=== PATIENT | female | born 1985 | race Caucasian/White ===

== ENCOUNTER 2016-10-09 23:50 | Emergency (ER) | payer OTHER ==
[~2016-10-09] VITALS: Ht 157.5 cm; Wt 97.8 kg
[~2016-10-09 23:50] MED LIST: ACET-1256 PO; PRENTAB26 PO
[2016-10-10 00:12] VITALS: TEMP 36.6; Ht 157.5 cm; Wt 97.8 kg
[2016-10-10] MEDS ORDERED: SODIUM CHLORIDE 0.9% 1000ML 1,000 ML IV STA (01:16)
[2016-10-10] MEDS ORDERED: ONDANSETRON 8 MG/54 ML D5W IV STA (01:34)
[2016-10-10] MEDS ORDERED: HYDROmorphone INJ 0.5 MG/0.5 ML SYR IV STA ×2 (01:34→04:23)
[2016-10-10 01:47] LABS: BASO % 0.5 %; BASO ABS # 0.05 K/uL (0-0.2); COMPLETE YES; IG% 0.3 %; LYMPH % 16.2 %; LYMPH ABS # 1.75 K/uL (1.2-3.4); MEAN CELL VOLUME 91.7 fL (80-100); MEAN CORPUSCULAR HGB CONC 33.9 g/dl (32-36); MEAN PLATELET VOLUME 11.1 fL (7.4-10.4); MONO % 5.3 %; NEUT % 76.7 %; PLATELET COUNT 233 K/uL (130-400); WHITE BLOOD COUNT 10.77 K/uL (4.8-10.8)
[2016-10-10 02:00] LABS: ALT/SGPT 36 U/L (12-78); AST/SGOT 23 U/L (15-37); BLOOD UREA NITROGEN 7 mg/dl (7-18); CALCIUM 8.4 mg/dl (8.5-10.1); CARBON DIOXIDE 26 mmol/L (21-32); CHLORIDE 103 mmol/L (98-107); GLUCOSE 110 mg/dl (70-99); POTASSIUM 3.8 mmol/L (3.5-5.1); SODIUM 138 mmol/L (136-145)
[2016-10-10 02:02] LABS: ALKALINE PHOSPHATASE 80 U/L (45-117)
[2016-10-10 03:03] LABS: MANUAL MICROSCOPIC REQUIRED? NO; REVIEW REQ? NO; URINE APPEARANCE TURBID (CLEAR); URINE BILIRUBIN NEG (NEG); URINE COLOR DK YELLOW; URINE EPITHELIAL CELL AUTO >30 /lpf (0-5); URINE NITRITE NEG (NEG); URINE SPECIFIC GRAVITY 1.027 (1.000-1.030); UROBILINOGEN NEG (NEG); ZZUR CULT IF INDIC CLEAN CATCH YES
[2016-10-10] MEDS ORDERED: SULFAMETHOXAZOLE/TRIMETHOPRIM DS 800/160MG TAB PO STA (04:18)
[2016-10-10] MEDS ORDERED: PROM25TA9 PO (04:21)
[2016-10-10] MEDS ORDERED: HYDR-5688 PO (04:21)
[2016-10-10] MEDS ORDERED: SULF800T23 PO (04:21)
[2016-10-10] MEDS ORDERED: PHENERGAN 25MG HOMEPACK PO ONE (04:30)
[2016-10-10] MEDS ORDERED: NORCO 5/325MG HOME PACK PO ONE (04:30)
[2016-10-10 04:46] VITALS: BP 128/87; PULSE 92; O2SAT 97
--- NOTE | 2016-10-10 06:58 | DIAGNOSTIC IMAGING REPORT ---
ABDOMEN AND PELVIS CT WITHOUT CONTRAST CT DOSE: 1584.28 mGy.cm HISTORY: Flank pain Right flank pain TECHNIQUE: Multiaxial CT images of the abdomen and pelvis were performed without the use of intravenous and oral contrast according to the standard department stone protocol. COMPARISON STUDY: 03/30/2013 FINDINGS: The lung bases are clear. The unenhanced liver, gallbladder, spleen, pancreas, and adrenal glands are unremarkable. 5 mm obstructing calculus distal right ureter. The right hydroureteronephrosis. Mild infiltrative change of the right renal and to lesser extent periureteral fat. Normal bowel pattern. Normal appendix. IMPRESSION: 5 mm obstructing calculus distal right ureter. Moderate right hydroureteronephrosis. Electronically signed by: Fernando Yost M.D. 10/10/2016 6:57 AM Dictated Date/Time: 10/10/2016 6:55 AM
--- NOTE | 2016-10-10 07:07 | EMERGENCY ROOM VISIT NOTE ---
History Report prepared by Jalen: José Le Under the Supervision of: Dr. Balwinder Fagan M.D. First contact with patient: 01:16 Chief Complaint: FLANK PAIN Stated Complaint: FLANK AND GROIN PAIN,VOMITING,NAUSEA History of Present Illness The patient is a 31 year old female who presents to the Emergency Room with complaints of persistent abdominal pain that started 2 days ago. The patient notes that she had the discomfort two days ago and also had burning with urination and vomiting. The discomfort is on her right side. The discomfort resolved on its own and the patient made an appointment with her PCP to get evaluated for a potential UTI. However, the discomfort came back tonight and wouldn't go away. She had multiple episodes of vomiting. She has history of kidney stones and notes that symptoms feel similar. Pt denies LOC, headache, fevers, chills, diaphoresis, visual changes, neck pain, chest pain, breathing difficulties, melena, hematochezia, numbness, weakness, lymphadenopathy, rash, or other complaints. Source of History: patient Onset: 2 days ago Position: abdomen Timing: other (persistent) Associated Symptoms: + urinary symptoms, + vomiting Review of Systems See HPI for pertinent positives and negatives. A total of ten systems were reviewed and were otherwise negative. Past Medical & Surgical Medical Problems: (1) Abdominal pain (2) Acute chest pain (3) Anxiety (4) Boxer's fracture (5) Bronchitis (6) Celiac disease (7) Chest pain (8) Cholecystectomy (9) Diarrhea (10) Gallbladder problem (11) Hand pain, right (12) Headache (13) Headache (14) Headache (15) Heart palpitations (16) History of reduction of breast (17) Hx of ectopic (18) Paresthesia (19) Paresthesias (20) Pyelonephritis (21) Right flank pain (22) Stomach problems (23) Vertigo Surgical Problems: (1) History of cholecystectomy (2) History of pelvic surgery Family History FH: breast cancer FH: gallbladder disease Social History Smoking Status: Current Every Day Smoker Alcohol Use: none Drug Use: none Marital Status: Housing Status: lives with family Occupation Status: employed Current/Historical Medications Scheduled Multivit/Min/Iron/Fol Ac/Pren ( Vitamin), 1 TAB PO WK Sulfa/Trimethoprim (Bactrim Ds 800MG/160MG), 1 TAB PO BID Scheduled PRN Acetaminophen (Tylenol), 500 MG PO Q3H PRN for Pain Hydrocodone/Acetaminophen 5MG/325MG ([place] 5MG/325MG), 1-2 TABS PO Q6H PRN for Pain Promethazine Hcl (Phenergan), 25 MG PO Q6H PRN for Nausea Allergies Coded Allergies: Latex1 -Allergic Contact Dermititis (Verified Allergy, Intermediate, HIVES , 04/07/16) Penicillins (Verified Allergy, Intermediate, nausea, face tingling, ) Aspirin (Verified Allergy, Mild, 04/07/16) Tramadol (Verified Allergy, Mild, 04/07/16) Codeine (Verified Allergy, Unknown, HALLUCINATIONS, 04/07/16) Gluten (Unverified Allergy, Unknown, celiac, 04/07/16) Ibuprofen (Verified Allergy, Unknown, ithcing, trouble breathing., 04/07/16 ) Oxycodone (Unverified Allergy, Unknown, hives/sick, 04/07/16) Physical Exam Vital Signs Date Time Temp Pulse Resp B/P Pulse Ox O2 Delivery O2 Flow Rate FiO2 10/10/16 04:46 92 16 128/87 97 10/10/16 03:01 94 16 135/90 98 Room Air 10/10/16 00:12 36.6 91 18 105/75 97 Room Air Physical Exam GENERAL: Awake, alert, well-appearing, in no distress HENT: Normocephalic, atraumatic. Oropharynx unremarkable. EYES: Normal conjunctiva. Sclera non-icteric. NECK: Supple. No nuchal rigidity. FROM. No JVD. RESPIRATORY: Clear to auscultation. CARDIAC: Regular rate, normal rhythm. Extremities warm and well perfused. Pulses equal. ABDOMEN: Soft, non-distended. No tenderness to palpation. No rebound or guarding. No masses. RECTAL: Deferred. MUSCULOSKELETAL: Chest examination reveals no tenderness. The back is symmetrical on inspection without obvious abnormality. There is CVA tenderness to palpation. No joint edema. LOWER EXTREMITIES: Calves are equal size bilaterally and non-tender. No edema. No discoloration. NEURO: Normal sensorium. No sensory or motor deficits noted. SKIN: No rash or jaundice noted. Medical Decision & Procedures ER Provider Diagnostic Interpretation: Radiology results as stated below per my review and radiologist interpretation CT Abdomen & Pelvis: Impression: 5 mm calculus at the distal right ureter (2-146), which causes mild hydroureteronephrosis. Periureteral and perinephric stranding. Addition findings: the gallbladder is surgically absent. The liver, spleen, pancreas, and adrenal glands are unremarkable. The appendix is unremarkable. A few scattered noninflamed colonic diverticula. No free fluid. No free air. No acute osseous abnormality. Laboratory Results 10/10/16 01:28 Red Blood Count 4.80, Mean Corpuscular Volume 91.7, Mean Corpuscular Hemoglobin 31.0, Mean Corpuscular Hemoglobin Concent 33.9, Mean Platelet Volume 11.1, Neutrophils (%) (Auto) 76.7, Lymphocytes (%) (Auto) 16.2, Monocytes (%) (Auto) 5.3, Eosinophils (%) (Auto) 1.0, Basophils (%) (Auto) 0.5, Neutrophils # (Auto) 8.26, Lymphocytes # (Auto) 1.75, Monocytes # (Auto) 0.57, Eosinophils # (Auto) 0.11, Basophils # (Auto) 0.05 10/10/16 01:28 Test 10/10/16 00:00 10/10/16 01:16 10/10/16 01:28 Urine Color DK YELLOW Urine Appearance TURBID (CLEAR) Urine pH 6.0 (4.5-7.5) Urine Specific [place] 1.027 (1.000-1.030) Urine Protein TRACE (NEG) Urine Glucose (UA) NEG (NEG) Urine Ketones TRACE (NEG) Urine Occult Blood 3+ (NEG) Urine Nitrite NEG (NEG) Urine Bilirubin NEG (NEG) Urine Urobilinogen NEG (NEG) Urine Leukocyte Esterase TRACE (NEG) Urine WBC (Auto) 5-10 /hpf (0-5) Urine RBC (Auto) >30 /hpf (0-4) Urine Hyaline Casts (Auto) 1-5 /lpf (0-5) Urine Epithelial Cells (Auto) >30 /lpf (0-5) Urine Bacteria (Auto) 1+ (NEG) Urine Test NEG (NEG) White Blood Count 10.77 K/uL (4.8-10.8) Red Blood Count 4.80 M/uL (4.2-5.4) Hemoglobin 14.9 g/dL (12.0-16.0) Hematocrit 44.0 % (37-47) Mean Corpuscular Volume 91.7 fL (80-100) Mean Corpuscular Hemoglobin 31.0 pg (25-34) Mean Corpuscular Hemoglobin Concent 33.9 g/dl (32-36) Platelet Count 233 K/uL (130-400) Mean Platelet Volume 11.1 fL (7.4-10.4) Neutrophils (%) (Auto) 76.7 % Lymphocytes (%) (Auto) 16.2 % Monocytes (%) (Auto) 5.3 % Eosinophils (%) (Auto) 1.0 % Basophils (%) (Auto) 0.5 % Neutrophils # (Auto) 8.26 K/uL (1.4-6.5) Lymphocytes # (Auto) 1.75 K/uL (1.2-3.4) Monocytes # (Auto) 0.57 K/uL (0.11-0.59) Eosinophils # (Auto) 0.11 K/uL (0-0.5) Basophils # (Auto) 0.05 K/uL (0-0.2) RDW Standard Deviation 46.0 fL (36.4-46.3) RDW Coefficient of Variation 13.7 % (11.5-14.5) Immature Granulocyte % (Auto) 0.3 % Immature Granulocyte # (Auto) 0.03 K/uL (0.00-0.02) Anion Gap 9.0 mmol/L (3-11) Est Creatinine Clear Calc Drug Dose 89.9 ml/min Estimated GFR () 87.6 Estimated GFR (Non- 75.5 BUN/Creatinine Ratio 7.0 (10-20) Calcium Level 8.4 mg/dl (8.5-10.1) Total Bilirubin 0.3 mg/dl (0.2-1) Direct Bilirubin < 0.1 mg/dl (0-0.2) Aspartate Amino Transf (AST/SGOT) 23 U/L (15-37) Alanine Aminotransferase (ALT/SGPT) 36 U/L (12-78) Alkaline Phosphatase 80 U/L (45-117) Total Protein 7.8 gm/dl (6.4-8.2) Albumin 3.9 gm/dl (3.4-5.0) Lipase 106 U/L (73-393) Laboratory results reviewed by me Medications Administered Medications (Trade) Dose Ordered Sig/[place] Route Start Time Stop Time Status Last Admin Dose Admin Sodium Chloride (Nss 1000ml) 1,000 ml @ 999 mls/hr Q1H1M STAT IV 10/10/16 01:16 10/10/16 02:16 DC 10/10/16 01:48 999 MLS/HR Hydromorphone HCl (Dilaudid Inj) 0.5 mg NOW STAT IV 10/10/16 01:34 10/10/16 01:36 DC 10/10/16 01:49 0.5 MG Ondansetron HCl (Zofran 8mg Iv) 8 mg NOW STAT IV 10/10/16 01:34 10/10/16 01:36 DC 10/10/16 01:48 8 MG Trimethoprim/ Sulfamethoxazole (Septra Ds 800/ 160MG Tab) 1 tab NOW STAT PO 10/10/16 04:18 10/10/16 04:19 DC 10/10/16 04:33 1 TAB Acetaminophen/ Hydrocodone Bitart ([place] 5/325mg Home Pack) 1 homepack UD ONCE PO 10/10/16 04:30 10/10/16 04:31 DC 10/10/16 04:40 1 HOMEPACK Promethazine HCl (Phenergan 25MG Home Pack) 1 homepack UD ONCE PO 10/10/16 04:30 10/10/16 04:31 DC 10/10/16 04:40 1 HOMEPACK Hydromorphone HCl (Dilaudid Inj) 0.5 mg NOW STAT IV 10/10/16 04:23 10/10/16 04:24 DC 10/10/16 04:33 0.5 MG ED Course 0116: Ordered NSS 1000 ml @ 999 mls/hr IV. 0132: The patient was evaluated in room A4. A complete history and physical exam was performed. 0134: Ordered Zofran 8 mg Iv 8 mg IV, Dilaudid Inj 0.5 mg IV. 0248: At this time, I reevaluated the patient and she was feeling better. 0418: Ordered Septra Ds 800/ 160 MG Tab 1 tab PO. 0423: Ordered Dilaudid Inj 0.5 mg IV. 0430: Ordered Promethazine HCl 1 homepack PO, [place] 5/325 mg Home Pack 1 homepack PO. 0435: I reevaluated the patient. Discussed results and discharge instructions: She verbalized understanding and agreement. The patient is ready for discharge. Medical Decision Prior records/ancillary studies reviewed. Triage Nursing notes reviewed and agree them. Additional history obtained from the family. The patient's history was concerning for flank and abdominal pain. Differential diagnosis: Etiologies such as renal colic, appendicitis, diverticulitis, mesenteric ischemia, aortic pathology, infections, inflammatory bowel disease, PUD, biliary pathology, UTI, as well as others were entertained. Physical examination findings: As above. ER treatment provided: IV normal saline IV Dilaudid IV Zofran On reassessment the patient felt better. Departed discharge patient was given a second dose of IV Dilaudid Oral Bactrim Diagnostic interpretation by me: The labs revealed an unremarkable CBC. Urinalysis was somewhat concerning. Culture sent. Chem panel LFTs and lipase were unremarkable. Imaging studies: CT of the abdomen and pelvis as above. It appears that the patient has isolated renal colic from a right sided stone. Urinalysis was somewhat abnormal and I will cover her with Bactrim pending culture. By the evaluation outlined above emergent etiologies such as appendicitis, diverticulitis, mesenteric ischemia, aortic pathology, infections, inflammatory bowel disease, PUD, biliary pathology, UTI, as well as others were deemed relatively unlikely. The patient was informed about the findings as listed above. All questions were answered and she was pleased with the treatment. Return instructions were outlined and the patient was discharged in stable condition. Outpatient prescription management: [place] Phenergan Bactrim Referral: The pt was referred to [facility] for follow up care regarding their stone. The chart was completed utilizing [employer] Speech voice recognition software. Grammatical errors, random word insertions, pronoun errors, and incomplete sentences are an occasional consequence of this system due to software limitations, ambient noise, and hardware issues. Any formal questions or concerns about the content, text, or information contained within the body of this dictation should be directly addressed to the physician for clarification. [place] Drug Monitoring Program Search Results: patient reviewed within database, no issues identified Impression Primary Impression: Kidney stone Scribe Attestation The scribe's documentation has been prepared under my direction and personally reviewed by me in its entirety. I confirm that the note above accurately reflects all work, treatment, procedures, and medical decision making performed by me. Departure Information Dispostion Home / Self-Care Prescriptions Promethazine Hcl (Phenergan) 25 Mg Tab 25 MG PO Q6H Y for Nausea, #10 TAB Prov: Balwinder Fagan MD 10/10/16 Hydrocodone/Acetaminophen 5MG/325MG ([place] 5MG/325MG) Tab 1-2 TABS PO Q6H Y for Pain, #20 TAB Prov: Balwinder Fagan MD 10/10/16 Sulfa/Trimethoprim (Bactrim Ds 800MG/160MG) Tab 1 TAB PO BID, #6 TAB Prov: Balwinder Fagan MD 10/10/16 Referrals Pranav Pina M.D. (MEDICAL) (PCP) Forms HOME CARE DOCUMENTATION FORM, IMPORTANT VISIT INFORMATION Patient Instructions My [facility] Additional Instructions KIDNEY STONE INSTRUCTIONS: Hydrocodone/acetaminophen 5/325mg: Take 1-2 pills every 6 hours as needed for pain. Avoid additional Acetaminophen/Tylenol, alcohol, operating machinery or dangerous equipment, working on ladders or roofs, DRIVING, or situations where being under the influence may be dangerous. It is recommended to use a stool softener such as Colace, 100mg twice daily while taking this medication to avoid constipation. Phenergan 25mg: Take one every six hours as needed for nausea. Avoid alcohol, operating machinery or dangerous equipment, working on ladders or roofs, DRIVING , or situations where being under the influence may be dangerous. Trimethoprim-Sulfamethoxazole(Bactrim DS): Take one pill twice daily for 3 days for your urine. All antibiotics can cause diarrhea. If this occurs and you feel worse or it does not resolve in 1-2 days follow up with your doctor or return to the Emergency Department as this could be signs of serious underlying problems. Any medication can cause an allergic reaction, stop the pills immediately and return to the ER for rash, hives, breathing difficulties, or swelling. Acetaminophen(Tylenol) may be used for fever or pain. Use 1000mg every six hours as needed. Avoid using more than 4000mg in a 24 hour period. This medication can be taken if you need to drive, work, or perform activities which may be dangerous when taking narcotic pain medication. Strain your urine and collect all the stones or debris for the urologists. Rest and avoid strenuous activity until your stone passes and symptoms resolve. Drink plenty of fluids. Return to the ER for worsening abdominal or back pain, vomiting, fevers, passing out, or as needed. Follow up with [facility] Wednesday, [phone], to arrange a visit.
--- NOTE | 2016-10-12 12:22 | Pharmacy Progress Note ---
ED Pharmacist Culture FollowUp Date of Service: Oct 12, 2016. Gardnerella-like bacteria growing in urine cx from 10/10/16. This organism is not likely a urinary pathogen and likely represents contamination of urine cx by vaginal contents (UA had > 30 epis). Patient had been dx with R urolithiasis and prescribed [place] + Phenergan + Bactrim on discharge from ED. No action required.
== END 2016-10-10 04:49 | disposition home or self-care (01) ==
LOC: C.EDB 23:52 → C.EDA 10-10 04:49
DX: N20.0 Calculus of kidney (principal); K90.0 Celiac disease; F17.200 Nicotine dependence, unspecified, uncomplicated; Z90.49 Acquired absence of other specified parts of digestive tract

== ENCOUNTER 2016-12-05 19:19 | Emergency (ER) | payer OTHER ==
[~2016-12-05] VITALS: Ht 157.5 cm; Wt 97.3 kg
[~2016-12-05 19:19] MED LIST changes: -ACET-1256 PO; +HYDR-5688 PO; +PROM25TA9 PO; +SULF800T23 PO
[2016-12-05 19:21] VITALS: BP 138/100; PULSE 106; TEMP 36.6; O2SAT 98; Ht 157.5 cm; Wt 97.3 kg
[2016-12-05] MEDS ORDERED: FLUT0.15 NAE (19:35)
[2016-12-05] MEDS ORDERED: CLIN300C2 PO (19:51)
--- NOTE | 2016-12-05 19:51 | EMERGENCY ROOM VISIT NOTE ---
History Report prepared by Jalen: Nat Khan Under the Supervision of: Dr. Morgan Broderick D.O. First contact with patient: 19:30 Chief Complaint: DENTAL PAIN Stated Complaint: SEVERE TOOTH PAIN Nursing Triage Summary: Pt ate a chocolate bar and back left side tooth starting to hurt. Pt reports 2 fillings in that tooth. History of Present Illness The patient is a 31 year old female who presents to the Emergency Room with complaints of persistent dental pain that began this morning and has worsened throughout the day. She currently rates her discomfort as an 8/10 in severity. The patient states that she developed the dental pain and states that she believes she sees a cavity forming. She states that she has taken Tylenol without relief of her symptoms. Source of History: patient Onset: this morning Position: teeth Symptom Intensity: 8/10 Timing: worsening, other (persistent) Note: Associated Symptoms: cavity forming Review of Systems See HPI for pertinent positives & negatives. A total of 6 systems reviewed and were otherwise negative. Past Medical & Surgical Medical Problems: (1) Abdominal pain (2) Acute chest pain (3) Anxiety (4) Boxer's fracture (5) Bronchitis (6) Celiac disease (7) Chest pain (8) Cholecystectomy (9) Diarrhea (10) Gallbladder problem (11) Hand pain, right (12) Headache (13) Headache (14) Headache (15) Heart palpitations (16) History of reduction of breast (17) Hx of ectopic (18) Paresthesia (19) Paresthesias (20) Pyelonephritis (21) Right flank pain (22) Stomach problems (23) Vertigo Surgical Problems: (1) History of cholecystectomy (2) History of pelvic surgery Family History FH: breast cancer FH: gallbladder disease Social History Smoking Status: Current Every Day Smoker Alcohol Use: none Drug Use: none Marital Status: Housing Status: lives with family Occupation Status: employed Current/Historical Medications Scheduled Clindamycin Hcl (Cleocin), 300 MG PO QID Fluticasone Propionate (Nasal) (Flonase Allergy Relief), 2 SPRAYS ISIDRO DAILY Multivit/Min/Iron/Fol Ac/Pren ( Vitamin), 1 TAB PO WK Scheduled PRN Acetaminophen (Tylenol), 500 MG PO Q3H PRN for Pain Allergies Coded Allergies: Morphine (Verified Allergy, Severe, "DROPS B/P", 12/05/16) NSAIDs (Verified Allergy, Severe, CAUSES ASTHMA ATTACKS, 12/05/16) Latex1 -Allergic Contact Dermititis (Verified Allergy, Intermediate, HIVES , 12/05/16) Penicillins (Verified Allergy, Intermediate, nausea, face tingling, ) Aspirin (Verified Allergy, Mild, 12/05/16) Tramadol (Verified Allergy, Mild, 12/05/16) Codeine (Verified Allergy, Unknown, HALLUCINATIONS, 12/05/16) Gluten (Verified Allergy, Unknown, celiac, 12/05/16) Ibuprofen (Verified Allergy, Unknown, ithcing, trouble breathing., 12/05/16 ) Oxycodone (Verified Allergy, Unknown, hives/sick, 12/05/16) Physical Exam Vital Signs Date Time Temp Pulse Resp B/P Pulse Ox O2 Delivery O2 Flow Rate FiO2 12/05/16 19:21 36.6 106 18 138/100 98 Room Air Physical Exam CONSTITUTIONAL/VITAL SIGNS: Reviewed / noted above. GENERAL: Non-toxic in appearance. INTEGUMENTARY: Warm, dry, and [place]. HEAD: Normocephalic. EYES: without scleral icterus or trauma. ENT/OROPHARYNX: left lower last molar [address], no swelling noted , no other abnormalities. LYMPHADENOPATHY/NECK: Is supple without lymphadenopathy or meningismus. RESPIRATORY: Lungs clear and equal. CARDIOVASCULAR: Regular rate and rhythm. GI/ABDOMEN: Soft and nontender. No organomegaly or pulsatile mass. No rebound or guarding. Normal bowel sounds. EXTREMITIES: Warm and well perfused. BACK: No CVA tenderness. NEUROLOGICAL: Intact without focal deficits. PSYCHIATRIC: normal affect. MUSCULOSKELETAL: Normally developed with good muscle tone. Medical Decision & Procedures ED Course 193: Previous medical records were reviewed. The patient was evaluated in room D6. A complete history and physical examination was performed. I discussed all the exam findings with her and I discussed the treatment plan. She verbalized complete understanding and agreement. She is ready to go home once she receives her antibiotics. 1999: Ordered Clindamycin HCl 150 mg PO. Medical Decision Differential Diagnosis: Dental abscess, dental infection, dental trauma, facial cellulitis. This is a 31-year-old female who presents with a chief complaint of dental pain that started earlier today. Her exam was unremarkable. She states that she has been using Orajel and Tylenol. She states that she has multiple allergies. She states that people normally put her on Vicodin for this. Her exam was unremarkable. She was offered Toradol IM but declined this. She was given a prescription for clindamycin. She did not want a prescription for Toradol. She was discharged. Follow-up with her dentist was recommended. Impression Primary Impression: Dentalgia Scribe Attestation The scribe's documentation has been prepared under my direction and personally reviewed by me in its entirety. I confirm that the note above accurately reflects all work, treatment, procedures, and medical decision making performed by me. Departure Information Dispostion Home / Self-Care Prescriptions Clindamycin Hcl (CLEOCIN) 300 Mg Cap 300 MG PO QID, #40 CAP Prov: Morgan Broderick D.O. 12/05/16 Referrals Hawk Gar M.D.([facility]) (PCP) Forms HOME CARE DOCUMENTATION FORM, IMPORTANT VISIT INFORMATION Patient Instructions My [facility] Additional Instructions Follow-up with your dentist for further care and evaluation in 1-2 days. Return to the emergency department for worsening or new symptoms or any concerns. You have been examined and treated today on an emergency basis only. This is not a substitute for, or an effort to provide, complete comprehensive medical care. It is impossible to recognize and treat all injuries or illnesses in a single emergency department visit. It is therefore important that you follow up closely with your doctor. Call as soon as possible for an appointment. Continue oral gel and Tylenol for pain. Clindamycin as prescribed.
[2016-12-05] MEDS ORDERED: CLINDAMYCIN HCL 150 MG CAP PO ONE (20:00)
[2016-12-06] MEDS ORDERED: CLIN300C2 PO (08:58)
[2016-12-06] MEDS ORDERED: HYDR-5688 PO (08:58)
== END 2016-12-05 20:01 | disposition home or self-care (01) ==
LOC: C.EDB 19:20 → C.EDD 20:01
DX: K08.89 Other specified disorders of teeth and supporting structures (principal); F41.9 Anxiety disorder, unspecified; K90.0 Celiac disease; Z90.49 Acquired absence of other specified parts of digestive tract; Z80.3 Family history of malignant neoplasm of breast; F17.210 Nicotine dependence, cigarettes, uncomplicated

== ENCOUNTER 2016-12-06 08:39 | Emergency (ER) | payer OTHER ==
[~2016-12-06] VITALS: Ht 157.5 cm; Wt 97.4 kg
[~2016-12-06 08:39] MED LIST changes: +CLIN300C2 PO; +FLUT0.15 NAE
[2016-12-06 08:43] VITALS: BP 153/90; PULSE 100; TEMP 36.3; O2SAT 99; Ht 157.5 cm; Wt 97.4 kg
[2016-12-06] MEDS ORDERED: CLIN300C2 PO (08:58)
[2016-12-06] MEDS ORDERED: HYDR-5688 PO (08:58)
--- NOTE | 2016-12-06 16:35 | EMERGENCY ROOM VISIT NOTE ---
History First contact with patient: 08:46 Chief Complaint: DENTAL PAIN Stated Complaint: TOOTH PAIN Nursing Triage Summary: Pt reports she was here 12 hrs ago for left sided dental pain "They told be to take tylenol and its not touching it" History of Present Illness The patient is a 31 year old female who presents to the Emergency Room with complaints of uncontrollable dental pain. The patient reports that she was in the emergency department approximately 12 hours ago, and was told to take Tylenol for the pain. She was provided a prescription for clindamycin, but reports that it was sent to a pharmacy that is not open on Wednesday. The patient is requesting something else for pain. She denies any fever or significantly worsening swelling. She rates her discomfort a 9 out of 10. Review of Systems 10 system review was performed and was negative except for pertinent positives and negatives as indicated in history of present illness Past Medical/Surgical History Medical Problems: (1) Abdominal pain (2) Acute chest pain (3) Anxiety (4) Boxer's fracture (5) Bronchitis (6) Celiac disease (7) Chest pain (8) Cholecystectomy (9) Diarrhea (10) Gallbladder problem (11) Hand pain, right (12) Headache (13) Headache (14) Headache (15) Heart palpitations (16) History of reduction of breast (17) Hx of ectopic (18) Paresthesia (19) Paresthesias (20) Pyelonephritis (21) Right flank pain (22) Stomach problems (23) Vertigo Surgical Problems: (1) History of cholecystectomy (2) History of pelvic surgery Family History FH: breast cancer FH: gallbladder disease Social History Smoking Status: Current Every Day Smoker Alcohol Use: none Drug Use: none Marital Status: Housing Status: lives with family Occupation Status: employed Current/Historical Medications Scheduled Clindamycin Hcl (Cleocin), 300 MG PO QID Clindamycin Hcl (Cleocin), 300 MG PO QID Fluticasone Propionate (Nasal) (Flonase Allergy Relief), 2 SPRAYS ISIDRO DAILY Multivit/Min/Iron/Fol Ac/Pren ( Vitamin), 1 TAB PO WK Scheduled PRN Acetaminophen (Tylenol), 500 MG PO Q3H PRN for Pain Hydrocodone/Acetaminophen 5MG/325MG ([place] 5MG/325MG), 1-2 TABLET PO Q4H PRN for Pain Allergies Coded Allergies: Morphine (Verified Allergy, Severe, "DROPS B/P", 12/05/16) NSAIDs (Verified Allergy, Severe, CAUSES ASTHMA ATTACKS, 12/05/16) Latex1 -Allergic Contact Dermititis (Verified Allergy, Intermediate, HIVES , 12/05/16) Penicillins (Verified Allergy, Intermediate, nausea, face tingling, ) Aspirin (Verified Allergy, Mild, 12/05/16) Tramadol (Verified Allergy, Mild, 12/05/16) Codeine (Verified Allergy, Unknown, HALLUCINATIONS, 12/05/16) Gluten (Verified Allergy, Unknown, celiac, 12/05/16) Ibuprofen (Verified Allergy, Unknown, ithcing, trouble breathing., 12/05/16 ) Oxycodone (Verified Allergy, Unknown, hives/sick, 12/05/16) Physical Exam Vital Signs Date Time Temp Pulse Resp B/P Pulse Ox O2 Delivery O2 Flow Rate FiO2 12/06/16 08:43 36.3 100 18 153/90 99 Room Air Pain Rating (0-10): 0 Physical Exam CONSTITUTIONAL: Healthy and well nourished. Alert and oriented X 3 with positive affect. HEENT: Normocephalic, atraumatic. Pupils equal, round and reactive. No facial edema noted. OROPHARYNX: No obvious gingival erythema, fluctuance or pointing. Negative trismus. No evidence for Alistair's angina or retropharyngeal abscess. LYMPHATICS: No preauricular, submental, submandibular or cervical chain adenopathy. NECK: Full active range of motion without discomfort. RESPIRATORY: Clear to auscultation bilaterally with no wheezing, crackles, rhonchi or stridor. CARDIOVASCULAR: Regular rate and rhythm with no murmurs, rubs or gallops. MUSCULOSKELETAL: Full range of motion of all joints without discomfort. INTEGUMENTARY: No rash or other significant dermatologic conditions noted. NEUROLOGIC: No focal neurologic deficits noted. Facial sensations are intact. Medical Decision & Procedures ED Course Patient history and physical exam were performed. Nurse's notes were reviewed. The patient was provided a prescription for Cleocin 300 mg 4 times a day 10 days, and OxyIR 5 mg, dispensed #15 with no refills, and sent to another pharmacy for the patient. She was encouraged to take Tylenol for baseline pain relief. The patient reports that she cannot take NSAIDs because of history of asthma and prior reaction. She was instructed that she must follow-up with a dentist for definitive care, and may contact her family doctor for further pain management until she can see her dentist. The patient was advised that the emergency department does not provide dental services, referrals or chronic dental pain management. She voiced understanding of all discharge instructions , was happy with plan of care, and rated her pain an 8 out of 10 at the time of discharge. [place] [facility] Monitoring Program Search Results: patient reviewed within database, no issues identified Impression Primary Impression: Pain, dental Departure Information Dispostion Home / Self-Care Condition GOOD Prescriptions Hydrocodone/Acetaminophen 5MG/325MG (Hellier 5MG/325MG) Tab 1-2 TABLET PO Q4H Y for Pain, #15 TAB For Initial Treatment Prov: Edd Iniguez PA 12/06/16 Clindamycin Hcl (CLEOCIN) 300 Mg Cap 300 MG PO QID for 10 Days, #40 CAP Prov: Edd Iniguez PA 12/06/16 Forms HOME CARE DOCUMENTATION FORM, IMPORTANT VISIT INFORMATION Patient Instructions [facility] Additional Instructions Complete all Cleocin antibiotics as prescribed. Hydrocodone if needed for worse pain. Do not drink or drive while taking this medication. Call your dentist tomorrow to schedule an appointment. Follow-up with your family doctor as needed for additional pain management. Emergency department does not provide dental services, referrals or chronic dental pain management.
== END 2016-12-06 09:15 | disposition home or self-care (01) ==
LOC: C.EDB 08:41
DX: K08.89 Other specified disorders of teeth and supporting structures (principal); F41.9 Anxiety disorder, unspecified; K90.0 Celiac disease; F17.200 Nicotine dependence, unspecified, uncomplicated; Z80.3 Family history of malignant neoplasm of breast

== ENCOUNTER 2017-05-08 16:13 | Emergency (ER) | payer OTHER ==
[~2017-05-08 16:13] MED LIST changes: -CLIN300C2 PO; -PROM25TA9 PO; -SULF800T23 PO
[2017-05-08 16:23] VITALS: TEMP 36.7; Ht 157.5 cm
--- NOTE | 2017-05-08 16:44 | EMERGENCY ROOM VISIT NOTE ---
History First contact with patient: 16:24 Chief Complaint: FOOT PAIN Stated Complaint: FOOT INJURY, WELLING CANT STAND ON IT History of Present Illness The patient is a 32 year old female who presents to the Emergency Room with complaints of left foot pain -Pt experienced a injury to her left foot/ankle last night while partying -Pt was intoxicated and can't recall the specifics of how she fell last night. -Pt denies any other injuries. -Pt says that she woke up this morning and is unable to bear weight on her left foot. -Pt describes a sharp pain shooting upwards through from the plantar surface of the foot. -Pt says that she has pain with flexion and extension of her foot. Review of Systems see below Constitutional: No fever, No chills, No sweats Respiratory: No cough, No shortness of breath Cardiovascular: No chest pain Past Medical/Surgical History Medical Problems: (1) Abdominal pain (2) Acute chest pain (3) Anxiety (4) Boxer's fracture (5) Bronchitis (6) Celiac disease (7) Chest pain (8) Cholecystectomy (9) Diarrhea (10) Gallbladder problem (11) Hand pain, right (12) Headache (13) Headache (14) Headache (15) Heart palpitations (16) History of reduction of breast (17) Hx of ectopic (18) Paresthesia (19) Paresthesias (20) Pyelonephritis (21) Right flank pain (22) Stomach problems (23) Vertigo Surgical Problems: (1) History of cholecystectomy (2) History of pelvic surgery Family History FH: breast cancer FH: gallbladder disease Social History Smoking Status: Current Every Day Smoker Alcohol Use: none Drug Use: none Marital Status: Housing Status: lives with family Occupation Status: employed Current/Historical Medications Scheduled Multivitamins/Minerals (Mvi With Minerals), 1 TAB PO Q2D Scheduled PRN Acetaminophen (Tylenol), 1,000 MG PO PRN UD PRN for Pain Hydrocodone/Acetaminophen 5MG/325MG ([place] 5MG/325MG), 1-2 TAB PO Q6H PRN for Pain Physical Exam Vital Signs Date Time Temp Pulse Resp B/P (MAP) Pulse Ox O2 Delivery O2 Flow Rate FiO2 05/08/17 18:16 86 18 98 05/08/17 16:23 36.7 86 18 13/84 98 Room Air Physical Exam WD WN Extremity: left midfoot is swollen, warm to touch. Pt has decreased active ROM in the left ankle; tenderness with flexion/extension/inversion/eversion. Lateral aspect of the foot is tender. Plantar midfoot is tender. Extremities: + pertinent finding Medical Decision & Procedures ER Provider Diagnostic Interpretation: LEFT FOOT 3 VIEWS CLINICAL HISTORY: Left foot injury. FINDINGS: 3 views of left foot are compared to study dated 11/05/2013. The skeletal structures are well mineralized. There is a lucency identified within the cuboid which may represent a nondistracted fracture. No additional findings are concerning for acute fracture. The joint spaces of the foot are maintained. Mild lateral soft tissue swelling is suggested. IMPRESSION: 1. There is a linear lucency identified in the cuboid seen on 1 view only. Nondistracted fracture is not excluded. Correlate for point tenderness at this site. 2. No additional findings are concerning for fracture. ED Course 1630 History and physical performed 1640 ordered xray 1700 Preliminary Xray read. appears to be a cuboid fracture 1723 Radiology report describes cuboid fracture 1800 pt discharged with surgical shoe, crutches and directions to f/u with ortho Medical Decision 32 yo female present after a foot injury after an injury last night Pt appears to have a midfoot injury. Xrays were ordered. Differential considered; cuboid fracture, navicular fracture, fracture of the base of the fifth metatarsal, ankle sprain Xray showed cuboid fracture Impression Primary Impression: Fracture of metatarsal bone Departure Information Dispostion Home / Self-Care Prescriptions Hydrocodone/Acetaminophen 5MG/325MG ([place] 5MG/325MG) Tab 1-2 TAB PO Q6H Y for Pain MDD daily, #15 TAB PRN PAIN Prov: Erick Sebastian M.D. 05/08/17 Referrals No Doctor, Assigned (PCP) Patient Instructions My [facility] Additional Instructions Today you had xrays performed in the ED that showed a fracture of the cuboid bone, a bone in your mid foot. Today we fitted you for a hard soled surgical shoe and crutches to help keep you foot immobilized. We advise you to keep your foot elevated and apply ice in 2 minute intervals when at home. In addition to this plan, we recommend following up with an orthopedic doctor in the outpatient setting.
[2017-05-08] MEDS ORDERED: MULT-513 PO (16:56)
--- NOTE | 2017-05-08 17:12 | EMERGENCY ROOM VISIT NOTE ---
ED Visit Note First contact with patient: 16:33 Resident Physician Supervision Note: I was present with Dr. Sebastian during the history and exam. I discussed the case with the resident and agree with the findings and plan as documented in the note. Documented By: Iglesia Marie
--- NOTE | 2017-05-08 17:28 | DIAGNOSTIC IMAGING REPORT ---
LEFT FOOT 3 VIEWS CLINICAL HISTORY: Left foot injury. FINDINGS: 3 views of left foot are compared to study dated 11/05/2013. The skeletal structures are well mineralized. There is a lucency identified within the cuboid which may represent a nondistracted fracture. No additional findings are concerning for acute fracture. The joint spaces of the foot are maintained. Mild lateral soft tissue swelling is suggested. IMPRESSION: 1. There is a linear lucency identified in the cuboid seen on 1 view only. Nondistracted fracture is not excluded. Correlate for point tenderness at this site. 2. No additional findings are concerning for fracture. Electronically signed by: Pete Polk M.D. 05/08/2017 5:27 PM Dictated Date/Time: 05/08/2017 5:23 PM
--- NOTE | 2017-05-08 17:30 | DIAGNOSTIC IMAGING REPORT ---
LEFT ANKLE 3 VIEWS CLINICAL HISTORY: Left ankle injury. FINDINGS: 3 views of the left ankle are obtained. No prior studies are available for comparison at the time of dictation. The skeletal structures are well mineralized. No fracture is seen. The ankle mortise is intact. There is no joint effusion. The overlying soft tissues are within normal limits. IMPRESSION: There is no radiographic evidence of left ankle fracture. Electronically signed by: Pete Polk M.D. 05/08/2017 5:28 PM Dictated Date/Time: 05/08/2017 5:27 PM
[2017-05-08] MEDS ORDERED: HYDR-5688 PO (18:05)
[2017-05-08 18:16] VITALS: BP 13/84; PULSE 86; O2SAT 98
[2017-05-08] MEDS ORDERED: ACET-1256 PO (22:11)
== END 2017-05-08 18:19 | disposition home or self-care (01) ==
LOC: C.EDB 16:14 → C.EDD 18:19
DX: S92.302A Fracture of unspecified metatarsal bone(s), left foot, initial encounter for closed fracture (principal); S92.212A Displaced fracture of cuboid bone of left foot, initial encounter for closed fracture; W19.XXXA Unspecified fall, initial encounter; F17.200 Nicotine dependence, unspecified, uncomplicated; Z87.59 Personal history of other complications of pregnancy, childbirth and the puerperium; Z90.49 Acquired absence of other specified parts of digestive tract; Z98.890 Other specified postprocedural states; Z80.3 Family history of malignant neoplasm of breast